=== PATIENT | female | born 2000 | race Caucasian/White ===

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

== ENCOUNTER → 2018-07-17 | Outpatient (CLI) | payer OTHER | LOC: M WUC 12:25 | DX: M79.672 Pain in left foot (principal) | CPT/HCPCS: 73630 ==

== ENCOUNTER → 2020-02-13 | Outpatient (REF) | payer OTHER ==
[~2020-02-13] MED LIST: IBUP80TA PO; ROBA500T PO
== END ==
LOC: M WUC 14:29
PROVIDERS: ATTEND Nurse Practitioner Family
DX: J02.9 Acute pharyngitis, unspecified (principal)

== ENCOUNTER → 2020-03-10 | Outpatient (REF) | payer OTHER | LOC: M WUC 08:57 | PROVIDERS: ATTEND Physician Assistant | DX: J02.9 Acute pharyngitis, unspecified (principal) ==

== ENCOUNTER → 2020-06-03 | Outpatient (REF) | payer OTHER ==
[2020-06-03 13:03] LABS: FREE T4 1.04 NG/DL (0.76-1.46); THYROID STIMULATING HORMONE 3.3 uIU/ML (0.358-3.740)
== END ==
LOC: M SFHCADAM 10:47
PROVIDERS: ATTEND Physician Assistant Medical
DX: F33.1 Major depressive disorder, recurrent, moderate (principal); F41.9 Anxiety disorder, unspecified; E66.01 Morbid (severe) obesity due to excess calories

== ENCOUNTER → 2021-04-26 | Outpatient (REF) | payer OTHER | LOC: M LAB REF 21:12 | PROVIDERS: ATTEND Physician Assistant Medical | DX: R50.9 Fever, unspecified (principal) ==

== ENCOUNTER → 2021-05-13 | Outpatient (REF) | payer OTHER | LOC: M LAB REF 16:35 | PROVIDERS: ATTEND Physician Assistant | DX: R07.0 Pain in throat (principal) ==

== ENCOUNTER 2021-05-31 14:32 | Emergency (ER) | payer OTHER ==
[~2021-05-31] VITALS: Ht 160 cm; Wt 108.8 kg
--- OUTSIDE RECORDS SUMMARY | 2021-05-31 14:38 | CCD ---
Author Author [facility] Organization [facility] Address Unknown Phone Unavailable Care Team Providers Care Human Resources Intern Name Role Phone HiraMelissa Unavailable PROBLEMS Type Condition ICD9-CM Code [id number] Code Onset Dates Condition S tatus W/U Status Risk SNOMED Code Notes Problem Anxiety F41.9 Active confirmed 94313383 Problem Generalized anxiety disorder F41.1 Active confirme d 37195391 Problem Moderate episode of recurrent major depressive disorder F33.1 Active confirmed 387118243 Problem Morbid obesity due to excess calories E66.01 Ac tive confirmed 203084940 ALLERGIES No Known Allergies ENCOUNTERS from 1998 to 2021-05-27 Encounter Location Date Provider Diagnosis [address] [place], [place] [address] May, Melissa Iniguez Generalized anxiety disorder F41.1 IMMUNIZATIONS No Information SOCIAL HISTORY Tobacco Use: Social History Observation Description Date Details (start date - stop date) Current Smoker Sex Assigned At : Social History Observation Description Sex Assigned At Unknown Education: Question Answer Notes Level of Education: Finished High School Audit Question Answer Notes Total Score: 4 Interpretation: Alcohol Education Language: Question Answer Notes Languages spoken: Sierra Leonean Sexual Hx: Question Answer Notes Had sex in the last 12 months (vaginal, oral, or anal)? Yes LMP: 04/17/2020 Have you ever had an STD? No Prevention Strategies discussed: Condoms with Both Men and Women Use protection? Yes How often? Most of the time Drug and Alcohol Question Answer Notes Total Score: 0 Interpretation: No problems reported Alcohol Screening: Question Answer Notes Did you have a drink containing alcohol in the past year? Ye s Points 5 Interpretation Positive How often did you have six or more drinks on one occas ion in the past year? Less than monthly (1 point) How many drinks did you have on a typica l day when you were drinking in the past year? 3 or 4 (1 point) How often did you have a drink containing alcohol in t he past year? Two to three times per week (3 points) Tobacco Use: Question Answer Notes Are you a: current smoker Vape, equivalent to 1/2 ppd Are you interested in quitting? Thinking about quitting REASON FOR REFERRAL No Information VITAL SIGNS No information MEDICATIONS Medication SIG (Take, Route, Frequency, Duration) Notes Start Da te End Date Status Previfem 0.25-35 MG-MCG 1 tablet Orally Once a day for 28 day(s) Active PROCEDURES No Information RESULTS No Results REASON FOR VISIT Zoom FU MEDICAL (GENERAL) HISTORY Type Description Date Medical History depression/anixety/insomnia Medical History morbid obesity Surgical History endoscopy / colonscopy - [facility] about 7 yo Surgical History B eye surgery 10/2014 Goals Section No Information Health Concerns No Information MEDICAL EQUIPMENT No Information MENTAL STATUS No Information FUNCTIONAL STATUS No Information ASSESSMENTS Encounter Date Diagnosis Assessment Notes Treatment Notes Treatm ent Clinical Notes May, Generalized anxiety disorder (ICD-10 - F41.1) Jacobo was seen for a follow up session. SHe reports symptoms have remained the same. Scheduled for follow up on 06/24/2021 PLAN OF TREATMENT Treatment Notes Assessment Notes Clinical Notes Generalized anxiety disorder Jacobo was seen for a follow up session. SHe reports symptoms have remained the same. Scheduled for follow up on 06/24/2021 Next Appt Details Provider Name:Brittany Esquivel, 2021-06-02 11:00:00 AM, [id number], , [place], [address], Provider Name:Melissa Iniguez, 2021-06-16 10:00:00 AM, [address], , [place], [address] Provider Name:Brittany Esquivel, 2021-07-19 07:15:00 AM, [address], , [place], [address], Insurance Providers Payer Name Payer Address Payer Phone Insured Name Patient Relati onship to Insured Coverage Start Date Coverage End Date [facility] [address] [address] [facility] [phone] Zander Morales
--- OUTSIDE RECORDS SUMMARY | 2021-05-31 14:38 | CCD ---
Author Author [facility] Organization [facility] [employer] [facility] Address Unknown Phone Unavailable Care Team Providers Care Communication Signals Intelligence Name Role Phone IniguezMelissa Unavailable PROBLEMS Type Condition ICD9-CM Code [id number] Code Onset Dates Condition S tatus W/U Status Risk SNOMED Code Notes Problem Anxiety F41.9 Active confirmed 48687286 Problem Generalized anxiety disorder F41.1 Active confirme d 72134254 Problem Moderate episode of recurrent major depressive disorder F33.1 Active confirmed 423029121 Problem Morbid obesity due to excess calories E66.01 Ac tive confirmed 968597809 ALLERGIES No Known Allergies ENCOUNTERS from 1998 to 2021-05-06 Encounter Location Date Provider Diagnosis [address] [place], [place] [address] 30 Apr, 2021 Melissa Iniguez Generalized anxiety disorder F41.1 IMMUNIZATIONS [...] Education Language: Question Answer Notes Languages spoken: Qatari Sexual Hx: Question Answer Notes Had sex [...] Information RESULTS No Results REASON FOR VISIT follow up MEDICAL (GENERAL) HISTORY Type Description Date Medical History depression/anixety/insomnia Medical History morbid obesity Surgical History endoscopy / colonscopy - [facility] about 7 yo Surgical History B eye surgery 10/2014 Goals Section No Information Health Concerns No Information MEDICAL EQUIPMENT No Information MENTAL STATUS No Information FUNCTIONAL STATUS No Information ASSESSMENTS Encounter Date Diagnosis Assessment Notes Treatment Notes Treatm ent Clinical Notes Apr, Generalized anxiety disorder (ICD-10 - F41.1) Jacobo was seen for a follow up session. He reports symptoms have remained the same. Scheduled for follow up on 05/27/21 at 8am. PLAN OF TREATMENT Treatment Notes Assessment Notes Clinical Notes Generalized anxiety disorder Jacobo was seen for a follow up session. He reports symptoms have remained the same. Scheduled for follow up on 05/27/21 at 8am. Next Appt Details Provider Name:Melissa Iniguez, 2021-05-27 08:00:00 AM, [address], , [place], [address] Insurance Providers Payer Name Payer Address Payer Phone Insured Name Patient Relati onship to Insured Coverage Start Date Coverage End Date [facility] [address] [address] [facility] [phone] Zander Abraham
--- OUTSIDE RECORDS SUMMARY | 2021-05-31 14:38 | CCD ---
Author Author [facility] Organization [facility] Address Unknown Phone Unavailable Care Team Providers Care Grey Goods Tester Name Role Phone RyanHaleyOsiris Unavailable PROBLEMS Type Condition ICD9-CM Code [id number] Code Onset Dates Condition S tatus W/U Status Risk SNOMED Code Notes Problem Anxiety F41.9 Active confirmed 18502617 Problem Generalized anxiety disorder F41.1 Active confirme d 15449353 Problem Moderate episode of recurrent major depressive disorder F33.1 Active confirmed 064341830 Problem Morbid obesity due to excess calories E66.01 Ac tive confirmed 979481718 ALLERGIES No Known Allergies ENCOUNTERS from 1998 to 2021-04-14 Encounter Location Date Provider Diagnosis [address] [place], [place] [address] 08 Apr, 2021 Osiris Davis Generalized anxiety disorder F41.1 IMMUNIZATIONS No Information SOCIAL HISTORY Tobacco Use: Social History Observation Description Date Details (start date - stop date) Current Smoker Sex Assigned At : Social History Observation Description Sex Assigned At Unknown Education: Question Answer Notes Level of Education: Finished High School Audit Question Answer Notes Total Score: 4 Interpretation: Alcohol Education Language: Question Answer Notes Languages spoken: Slovenian Sexual Hx: Question Answer Notes Had sex [...] No Results REASON FOR VISIT follow up Melissa taylor MEDICAL (GENERAL) HISTORY Type Description Date Medical [...] He reports symptoms have remained the same. Will follow up with Melissa Iniguez LMSW. PLAN OF TREATMENT Treatment Notes Assessment Notes Clinical Notes Generalized anxiety disorder Jacobo was seen for a follow up session. He reports symptoms have remained the same. Will follow up with Melissa Iniguez LMSW. Next Appt Details Provider Name:Melissa Iniguez, 2021-05-05 08:00:00 AM, [address], , [place], [address] Insurance Providers Payer Name Payer Address Payer Phone Insured Name Patient Relati onship to Insured Coverage Start Date Coverage End Date [facility] [address] [facility] [phone] Zander Morales
--- OUTSIDE RECORDS SUMMARY | 2021-05-31 14:39 | CCD ---
Author Author [facility] Organization [facility] Address Unknown Phone Unavailable Care Team Providers Care Drainman Name Role Phone RyanHaleyOsiris Unavailable PROBLEMS Type Condition ICD9-CM Code [id number] Code Onset Dates Condition S tatus W/U Status Risk SNOMED Code Notes Problem Anxiety F41.9 Active confirmed 81412657 Problem Generalized anxiety disorder F41.1 Active confirme d 26939162 Problem Moderate episode of recurrent major depressive disorder F33.1 Active confirmed 706313304 Problem Morbid obesity due to excess calories E66.01 Ac tive confirmed 621977422 ALLERGIES No Known Allergies ENCOUNTERS from 1998 to 2021-03-25 Encounter Location Date Provider Diagnosis [address] [place], [place] [address] Mar, Osiris Davis Generalized anxiety disorder F41.1 IMMUNIZATIONS [...] Education Language: Question Answer Notes Languages spoken: Irish Sexual Hx: Question Answer Notes Had sex [...] RESULTS No Results REASON FOR VISIT follow up/c[facility]et MEDICAL (GENERAL) HISTORY Type Description Date Medical History depression/anixety/insomnia Medical History morbid obesity Surgical History endoscopy / colonscopy - [facility] about 7 yo Surgical History B eye surgery 10/2014 Goals Section No Information Health Concerns No Information MEDICAL EQUIPMENT No Information MENTAL STATUS No Information FUNCTIONAL STATUS No Information ASSESSMENTS Encounter Date Diagnosis Assessment Notes Treatment Notes Treatm ent Clinical Notes Mar, Generalized anxiety disorder (ICD-10 - F41.1) Jacobo was seen for a follow up session, via zoom. Reports symptoms have remained the same. Scheduled for a return session 04/13/2021. PLAN OF TREATMENT Treatment Notes Assessment Notes Clinical Notes Generalized anxiety disorder Jacobo was seen for a follow up session, via zoom. Reports symptoms have remained the same. Scheduled for a return session 04/13/2021. Next Appt Details Provider Name:Osiris Ryan, 2021-04 11:00:00 AM, [address], , [place], [address] Insurance Providers Payer Name Payer Address Payer Phone Insured Name Patient Relati onship to Insured Coverage Start Date Coverage End Date [facility] [address] [address] [facility] [phone] Zander Morales
--- OUTSIDE RECORDS SUMMARY | 2021-05-31 14:39 | CCD ---
Author Author [facility] Organization [facility] Address Unknown Phone Unavailable Care Team Providers Care Sanitary [place]kin Machine Tender Name Role Phone Ryan Osiris Unavailable PROBLEMS Type Condition ICD9-CM Code [id number] Code Onset Dates Condition S tatus W/U Status Risk SNOMED Code Notes Problem Anxiety F41.9 Active confirmed 85109444 Problem Generalized anxiety disorder F41.1 Active confirme d 86854699 Problem Moderate episode of recurrent major depressive disorder F33.1 Active confirmed 582411467 Problem Morbid obesity due to excess calories E66.01 Ac tive confirmed 026089031 ALLERGIES No Known Allergies ENCOUNTERS from 1998 to 2021-03-14 Encounter Location Date Provider Diagnosis [address] [place] [address] Mar, Osiris Davis IMMUNIZATIONS No Information SOCIAL HISTORY Tobacco Use: Social History Observation Description Date Details (start date - stop date) Current Smoker Sex Assigned At : Social History Observation Description Sex Assigned At Unknown Education: Question Answer Notes Level of Education: Finished High School Audit Question Answer Notes Total Score: 4 Interpretation: Alcohol Education Language: Question Answer Notes Languages spoken: Ivorian Sexual Hx: Question Answer Notes Had sex [...] Information RESULTS No Results REASON FOR VISIT Update Demographics - Personal Info MEDICAL (GENERAL) HISTORY Type Description Date Medical History depression/anixety/insomnia Medical History morbid obesity Surgical History endoscopy / colonscopy - [facility] about 7 yo Surgical History B eye surgery 10/2014 Goals Section No Information Health Concerns No Information MEDICAL EQUIPMENT No Information MENTAL STATUS No Information FUNCTIONAL STATUS No Information ASSESSMENTS No Information PLAN OF TREATMENT Next Appt Details Provider Name:Osiris Ryan, 2021-03 09:00:00 AM, [address], , [place], [address] Insurance Providers Payer Name Payer Address Payer Phone Insured Name Patient Relati onship to Insured Coverage Start Date Coverage End Date [facility] [address] [address] [facility] [phone] Zander Abraham
--- OUTSIDE RECORDS SUMMARY | 2021-05-31 14:39 | CCD ---
Author Author [facility] [employer] [employer] [facility] Organization [facility] [employer] [facility] Address Unknown Phone Unavailable Care Team Providers Care Reserve Operator Name Role Phone RyanHaleyOsiris Unavailable PROBLEMS Type Condition ICD9-CM Code [id number] Code Onset Dates Condition S tatus W/U Status Risk SNOMED Code Notes Problem Anxiety F41.9 Active confirmed 55081134 Problem Generalized anxiety disorder F41.1 Active confirme d 32461272 Problem Moderate episode of recurrent major depressive disorder F33.1 Active confirmed 431821222 Problem Morbid obesity due to excess calories E66.01 Ac tive confirmed 693499694 ALLERGIES No Known Allergies ENCOUNTERS from 1998 to 2021-03-09 Encounter Location Date Provider Diagnosis [facility] [address] [place] [address] [address] [place], [place] [address] Mar, Osiris Davis Generalized anxiety disorder F41.1 [...] Education Language: Question Answer Notes Languages spoken: Syriac Sexual Hx: Question Answer Notes Had sex [...] the same. Scheduled for a return session 03/24/2021 PLAN OF TREATMENT Treatment Notes Assessment Notes Clinical Notes Generalized anxiety disorder Jacobo was seen for a follow up session, via zoom. Reports symptoms have remained the same. Scheduled for a return session 03/24/2021 Next Appt Details Provider Name:Osiris Davis, 2021-03 09:00:00 AM, [address], , [place], [address] Insurance Providers Payer Name Payer Address Payer Phone Insured Name Patient Relati onship to Insured Coverage Start Date Coverage End Date [facility] [address] [address] [facility] [phone] Zander Morales
--- OUTSIDE RECORDS SUMMARY | 2021-05-31 14:39 | CCD ---
Author Author [facility] Organization [facility] Address Unknown Phone Unavailable Care Team Providers Care Manager It Training Name Role Phone Noemi KANG MD Unavailable Unavailable JORGE LUIS, Noemi REES MD Unavailable Unavailable KANG, Noemi REES MD Unavailable Unavailable KANG, L NEGRITA LEVI Unavailable Unavailable KANG, Noemi REES MD Unavailable Unavailable KANG, L NEGRITA LEVI Unavailable Unavailable KANG, Noemi REES MD Unavailable Unavailable KANGNoemi MD Unavailable Unavailable KANG, L NEGRITA LEVI Unavailable Unavailable KANG, Noemi REES MD Unavailable Unavailable KANG, L NEGRIAT LEVI Unavailable Unavailable KANG, L NEGRITA LEVI Unavailable Unavailable KANG L NEGRITA LEVI Unavailable Unavailable KANG, L NEGRITA LEVI Unavailable Unavailable KANG, L NEGRITA LEVI Unavailable Unavailable KANG, L NEGRITA LEVI Unavailable Unavailable KANG, L NEGRITA LEVI Unavailable Unavailable KANG, L NEGRITA LEVI Unavailable Unavailable KANG, L NEGRITA LEVI Unavailable Unavailable KANG, L NEGRITA LEVI Unavailable Unavailable KANG, L NEGRITA LEVI Unavailable Unavailable KANG, L NEGRITA MD Unavailable Unavailable KANG, L NEGRITA MD Unavailable Unavailable KANG, L NEGRITA MD Unavailable Unavailable KANG, L NEGRITA MD Unavailable Unavailable KANG, L NEGRITA MD Unavailable Unavailable KANG, L NEGRITA MD Unavailable Unavailable KANG, L NEGRITA MD Unavailable Unavailable KANG, L NEGRITA MD Unavailable Unavailable KANG, L NEGRITA MD Unavailable Unavailable KANG, L NEGRITA MD Unavailable Unavailable KANG, L NEGRITA MD Unavailable Unavailable KANG, L NEGRITA MD Unavailable Unavailable KANG, L NEGRITA MD Unavailable Unavailable KANG, L NEGRITA MD Unavailable Unavailable KANG, L NEGRITA MD Unavailable Unavailable KANG, L NEGRITA MD Unavailable Unavailable KANG, L NEGRITA MD Unavailable Unavailable KANG, L NEGRITA MD Unavailable Unavailable KANG, L NEGRITA MD Unavailable Unavailable KANG, L NEGRITA MD Unavailable Unavailable KANG, L NEGRITA MD Unavailable Unavailable KANG, L NEGRITA MD Unavailable Unavailable KANG, L NEGRITA MD Unavailable Unavailable KANG, L NEGRITA MD Unavailable Unavailable Re-disclosure Warning The records that you are about to access may contain information from federally-assisted alcohol or drug abuse programs. If such information is present, then the following federally mandated warning applies: This information has been disclosed to you from records protected by federal confidentiality rules (42 CFR part 2). The federal rules prohibit you from making any further disclosure of this information unless further disclosure is expressly permitted by the written consent of the person to whom it pertains or as otherwise permitted by 42 CFR part 2. A general authorization for the release of medical or other information is NOT sufficient for this purpose. The Federal rules restrict any use of the information to criminally investigate or prosecute any alcohol or drug abuse patient.The records that you are about to access may contain highly sensitive health information, the redisclosure of which is protected by Article 27-F of the [facility] Public Health law. If you continue you may have access to information: Regarding HIV / AIDS; Provided by facilities licensed or operated by the [facility] Office of Mental Health; or Provided by the [facility] Office for People With Developmental Disabilities. If such information is present, then the following [facility] mandated warning applies: This information has been disclosed to you from confidential records which are protected by state law. State law prohibits you from making any further disclosure of this information without the specific written consent of the person to whom it pertains, or as otherwise permitted by law. Any unauthorized further disclosure in violation of state law may result in a fine or long term sentence or both. A general authorization for the release of medical or other information is NOT sufficient authorization for further disc losure. Family History Family Member Name Family Member Gender Family Member Status Date o f Status Description Data Source(s) Unknown Unknown Problem [facility]ENT ([facility], [facility]) Unknown Unknown Problem [place] [place]ters Encounter Providers Location Date Indications Data Source(s ) (TV_Virtual) [facility] [address] [place] [phone] 05/27/2021 12:00:00 AM EDT eCW1 ([facility]) (TV_Virtual) [facility] Visit [address] [place] [phone] 05/05/2021 12:00:00 AM EDT eCW1 ([facility]) (TV_Virtual) [facility] [address] [place] [phone] 04/13/2021 12:00:00 AM EDT eCW1 ([facility]) (TV_Virtual) [facility] [address] [place] [phone] 03/24/2021 12:00:00 AM EDT eCW1 ([facility]) Unknown [address] [place] [address], [place] [address] 03/09/2021 12:00:00 AM EDT eCW1 ([facility]) (TV_Virtual) [facility] Visit [address] [place] [phone] 03/09/2021 12:00:00 AM EDT eCW1 ([facility]) (TV_Virtual) [facility] Visit [address] [place] [phone] 02/23/2021 12:00:00 AM EDT eCW1 ([facility]) (TV_Virtual) [facility] [address] [place] [phone] 02/02/2021 12:00:00 AM EDT eCW1 ([facility]) (TV_Virtual) [facility] [address] [place] [phone] 01/28/2021 12:00:00 AM EDT eCW1 ([facility]) (TV_Virtual) [facility] [address] [place] [phone] 01/10/2021 12:00:00 AM EDT eCW1 ([facility]) (TV_Virtual) [facility] Visit [address] [place] [phone] 12/16/2020 12:00:00 AM EDT eCW1 ([facility]) (TV_Virtual) [facility] [address] [place] [phone] 11/22/2020 12:00:00 AM EDT eCW1 ([facility]) (TV_Virtual) [facility] [address] [place] [phone] 11/01/2020 12:00:00 AM EDT eCW1 ([facility]) (TV_Virtual) [facility] [address] [place] [phone] 10/13/2020 12:00:00 AM EST eCW1 ([facility]) (TV_Virtual) [facility] [address] [place] [phone] 09/22/2020 12:00:00 AM EST eCW1 ([facility]) (TV_Virtual) [facility] Visit [address] [place] [phone] 09/02/2020 12:00:00 AM EST eCW1 ([facility]) Outpatient [address] [place] [phone] 08/30/2020 12:00:00 AM EST eCW1 ([facility]) (TV_Virtual) [facility] Visit [address] [place] [phone] 08/17/2020 12:00:00 AM EST eCW1 ([facility]) [place] [address] [facility] [address] 08/03/2020 12:00:00 AM EST eCW1 ([facility]) (TV_Virtual) [facility] Visit [address] [place] [address] 07/23/2020 12:00:00 AM EST eCW1 ([facility]) [place] [address] [facility] [address] 07/21/2020 12:00:00 AM EST eCW1 ([facility]) [place] [address] [facility] [address] 07/12/2020 12:00:00 AM EST eCW1 ([facility]) (TV_Virtual) [facility] Visit [address] [place] [address] 07/06/2020 12:00:00 AM EST eCW1 ([facility]) [place] [address] [facility] [address] 06/21/2020 12:00:00 AM EST eCW1 ([facility]) [place] [address] [facility] [address] 06/17/2020 12:00:00 AM EST eCW1 ([facility]) [place] [address] [facility] [address] 06/03/2020 12:00:00 AM EDT eCW1 ([facility]) Outpatient Attender: NEGRITA [facility] anesthetist 02/2020 10:15:00 AM EDT MEDLISA ([facility] [employer]) Immunizations Vaccine Date Status Description Data Source(s) COVID-19 VACC,MRNA(MODERNA)/PF 12/20/2020 12:00:00 AM EDT completed [facility] COVID-19 VACCINE Moderna 12/20/2020 12:00:00 AM EDT completed [facility] Vaccine Series Complete: YESThis Data wa s Submitted to [facility] Via [facility]. COVID-19 VACCINE Moderna 11/25/2020 12:00:00 AM EDT completed [facility] Vaccine Series Complete: NOThis Data was Submitted to [facility] Via [employer]. COVID-19 VACC,MRNA(MODERNA)/PF 11/25/2020 12:00:00 AM EDT completed [facility] Medications Medication Brand Name Start Date Product Form Dose Route Admi nistrative Instructions Pharmacy Instructions Status Indications Reaction Description Data Source(s) Escitalopram 10 MG Oral Tablet Escitalopram Oxalate 10 MG Escitalopram Oxalate 10 MG 08/03/2020 12:00:00 AM EST 1.0 {tablet} activ e Escitalopram Oxalate 10 MG eCW1 ([facility]) Escitalopram 10 MG Oral Tablet Escitalopram Oxalate 10 MG Escitalopram Oxalate 10 MG 08/03/2020 12:00:00 AM EST 1.0 {tablet} activ e Escitalopram Oxalate 10 MG eCW1 ([facility]) Sertraline 100 MG Oral Tablet Sertraline HCl 100 MG Sertrali ne HCl 100 MG 06/03/2020 12:00:00 AM EDT 1.0 {tablet} active Sertraline HCl 100 MG eCW1 ([facility]) Sertraline 100 MG Oral Tablet Sertraline HCl 100 MG Sertrali ne HCl 100 MG 06/03/2020 12:00:00 AM EDT 1.0 {tablet} active Sertraline HCl 100 MG eCW1 ([facility]) Sertraline 50 MG Oral Tablet Sertraline HCl 50 MG Sertraline HCl 50 MG 06/03/2020 12:00:00 AM EDT 1.0 {tablet} active Sertraline HCl 50 MG eCW1 ([facility]) Sertraline 50 MG Oral Tablet Sertraline HCl 50 MG Sertraline HCl 50 MG 06/03/2020 12:00:00 AM EDT 1.0 {tablet} active Sertraline HCl 50 MG eCW1 ([facility]) Sertraline 50 MG Oral Tablet Sertraline HCl 50 MG Sertraline HCl 50 MG 06/03/2020 12:00:00 AM EDT 1.0 {tablet} active Sertraline HCl 50 MG eCW1 ([facility]) Sertraline 50 MG Oral Tablet Sertraline HCl 50 MG Sertraline HCl 50 MG 06/03/2020 12:00:00 AM EDT 1.0 {tablet} active Sertraline HCl 50 MG eCW1 ([facility]) Sertraline 100 MG Oral Tablet Sertraline HCl 100 MG Sertrali ne HCl 100 MG 06/03/2020 12:00:00 AM EDT 1.0 {tablet} active Sertraline HCl 100 MG eCW1 ([facility]) 0.25-35 mg-mcg 05/12/2020 12:00:00 AM EDT tablet 28 TAKE ONE TABLET BY MOUTH EVERY DAY TAKE ONE TABLET BY MOUTH EVERY DAY SOLD: 05/14/2020 [facility] 0.25-35 mg-mcg 05/12/2020 12:00:00 AM EDT tablet 28 TAKE ONE TABLET BY MOUTH EVERY DAY TAKE ONE TABLET BY MOUTH EVERY DAY SOLD: 07/10/2020 [facility] 0.25-35 mg-mcg 05/12/2020 12:00:00 AM EDT tablet 28 TAKE ONE TABLET BY MOUTH EVERY DAY TAKE ONE TABLET BY MOUTH EVERY DAY SOLD: 01/06/2021 [facility] 0.25-35 mg-mcg 05/12/2020 12:00:00 AM EDT tablet 28 TAKE ONE TABLET BY MOUTH EVERY DAY TAKE ONE TABLET BY MOUTH EVERY DAY SOLD: 02/02/2021 [facility] 0.25-35 mg-mcg 05/12/2020 12:00:00 AM EDT tablet 28 TAKE ONE TABLET BY MOUTH EVERY DAY TAKE ONE TABLET BY MOUTH EVERY DAY SOLD: 11/23/2020 [facility] 0.25-35 mg-mcg 05/12/2020 12:00:00 AM EDT tablet 28 TAKE ONE TABLET BY MOUTH EVERY DAY TAKE ONE TABLET BY MOUTH EVERY DAY SOLD: 09/23/2020 [facility] Sprintec 28 Sprintec 28 05/12/2020 12:00:00 AM EDT ORAL active MEDENT ([facility] [employer]) 0.25-35 mg-mcg 05/12/2020 12:00:00 AM EDT tablet 28 TAKE ONE TABLET BY MOUTH EVERY DAY TAKE ONE TABLET BY MOUTH EVERY DAY SOLD: 10/28/2020 [facility] Insurance Providers Payer name Policy type / Coverage type Policy ID Covered green party ID Covered green party's relationship to weinstein Policy Weinstein [facility] [id number] FA2 [id number] POMCO [id number] FA2 [id number] [facility] [id number] FA2 [id number] POMCO U [id number] Child [id number] Pom[employer] Ppo Commercial [id number] Family Dependent 33 3 POMCO U [id number] Child [id number] POMCO O [id number] FR [id number] Self Pay O [id number] O [id number] POM[employer] P [id number] O [id number] Sliding Fee Scale S [id number] O [id number] [employer] PPO O [id number] C [id number] Umr/c/[facility] [facility] Maintenance Organization (O) [id number] Family Dependent [id number] [employer]mr[employer] (O) [id number] Family Dependent [id number] PROGRESSIVE CO NO FAULT [id number] MO2 [id number] PROGRESSIVE CO NO FAULT [id number] MO2 [id number] [employer] Ppo Commercial [id number] Family Dependent Jesusita Morales [id number] [facility] [id number] FA2 [id number] Problems, Conditions, and Diagnoses Code Display Name Description Problem Type Effective Dates Data Source(s) F41.1 [id number] Generalized anxiety disorder Problem 021 12:00:00 AM EST eCW1 ([facility]) E66.01 [id number] Morbid obesity due to excess calories Pro blem 06/03/2020 12:00:00 AM EDT eCW1 ([facility]) F33.1 [id number] 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 Cervical, Endocervical, ThinPrep Pap (Film Critic) CYTOLOGY HX-------- Date of Last Menstrual Period: 02/15/20 Other Information: Routine Exam FINAL DIAGNOSIS---- INTERPRETATION: Negative for Intraepithelial Lesion or Malignancy. SPECIMEN ADEQUACY:Satisfactory for evaluation. Endocervical/transformation zone component present. TP Reflex HPV ASCUS Laboratory test result MEDENT ([facility] [employer]) Procedure Social History Code Duration Value Status Description Data Source(s ) Smoking 08/30/2020 12:00:00 AM EST Current Smoker completed Curre nt Smoker eCW1 ([facility]) Smoking 08/30/2020 12:00:00 AM EST Current Smoker completed Curre nt Smoker eCW1 ([facility]) Smoking 08/30/2020 12:00:00 AM EST Current Smoker completed Curre nt Smoker eCW1 ([facility]) Smoking 08/30/2020 12:00:00 AM EST Current Smoker completed Curre nt Smoker eCW1 ([facility]) Smoking 08/30/2020 12:00:00 AM EST Current Smoker completed Curre nt Smoker eCW1 ([facility]) Smoking 08/30/2020 12:00:00 AM EST Current Smoker completed Curre nt Smoker eCW1 ([facility]) Smoking 08/30/2020 12:00:00 AM EST Current Smoker completed Curre nt Smoker eCW1 ([facility]) Smoking 08/30/2020 12:00:00 AM EST Current Smoker completed Curre nt Smoker eCW1 ([facility]) Smoking 08/30/2020 12:00:00 AM EST Current Smoker completed Curre nt Smoker eCW1 ([facility]) Smoking 08/30/2020 12:00:00 AM EST Current Smoker completed Curre nt Smoker eCW1 ([facility]) Smoking 08/30/2020 12:00:00 AM EST Current Smoker completed Curre nt Smoker eCW1 ([facility]) Smoking 08/30/2020 12:00:00 AM EST Current Smoker completed Curre nt Smoker eCW1 ([facility]) Smoking 08/30/2020 12:00:00 AM EST Current Smoker completed Curre nt Smoker eCW1 ([facility]) Smoking 08/30/2020 12:00:00 AM EST Current Smoker completed Curre nt Smoker eCW1 ([facility]) Smoking 08/30/2020 12:00:00 AM EST Current Smoker completed Curre nt Smoker eCW1 ([facility]) Smoking 08/30/2020 12:00:00 AM EST Current Smoker completed Curre nt Smoker eCW1 ([facility]) Smoking 08/30/2020 12:00:00 AM EST Current Smoker completed Curre nt Smoker eCW1 ([facility]) Smoking 08/03/2020 12:00:00 AM EST Current Smoker completed Curre nt Smoker eCW1 ([facility]) Smoking 08/03/2020 12:00:00 AM EST Current Smoker completed Curre nt Smoker eCW1 ([facility]) Smoking 07/12/2020 12:00:00 AM EST Current Smoker completed Curre nt Smoker eCW1 ([facility]) Smoking 07/12/2020 12:00:00 AM EST Current Smoker completed Curre nt Smoker eCW1 ([facility]) Smoking 07/12/2020 12:00:00 AM EST Current Smoker completed Curre nt Smoker eCW1 ([facility]) Smoking 06/21/2020 12:00:00 AM EST Current Smoker completed Curre nt Smoker eCW1 ([facility]) Smoking 06/21/2020 12:00:00 AM EST Current Smoker completed Curre nt Smoker eCW1 ([facility]) Smoking 06/03/2020 12:00:00 AM EDT Current Smoker completed Curre nt Smoker eCW1 ([facility]) Smoking 06/03/2020 12:00:00 AM EDT Current Smoker completed Curre nt Smoker eCW1 ([facility]) Vital Signs ID Date Data Source UNK Name Value Range Interpretation Code Description Data Source(s) Body height [in_i] eCW1 ([facility]) Body weight 222 [lb_av] 222 [lb_av] eCW1 ([facility]) Body mass index (BMI) [Ratio] 39.32 kg/m2 39.32 kg/m2 eCW1 ([facility]) Heart rate 122 /min 122 /min eCW1 ([facility]) Respiratory rate 18 /min 18 /min eCW1 ([facility]) Body temperature 98 [degF] 98 [degF] eCW1 ([facility]) Systolic blood pressure 112 mm[Hg] 112 mm[Hg] e CW1 ([facility]) Diastolic blood pressure 66 mm[Hg] 66 mm[Hg] eCW1 ([facility]) Body weight 227 [lb_av] 227 [lb_av] eCW1 ([facility]) Body height [in_i] eCW1 ([facility]) Body mass index (BMI) [Ratio] 40.21 kg/m2 40.21 kg/m2 eCW1 ([facility]) Heart rate 107 /min 107 /min eCW1 ([facility]) Respiratory rate 18 /min 18 /min eCW1 ([facility]) Body temperature 96.6 [degF] 96.6 [degF] eCW1 ( [facility]) Systolic blood pressure 120 mm[Hg] 120 mm[Hg] e CW1 ([facility]) Diastolic blood pressure 78 mm[Hg] 78 mm[Hg] eCW1 ([facility]) Body weight 228 [lb_av] 228 [lb_av] eCW1 ([facility]) Body height [in_i] eCW1 ([facility]) Respiratory rate 18 /min 18 /min eCW1 ([facility]) Body temperature 96.5 [degF] 96.5 [degF] eCW1 ( [facility]) Systolic blood pressure 128 mm[Hg] 128 mm[Hg] e CW1 ([facility]) Diastolic blood pressure 76 mm[Hg] 76 mm[Hg] eCW1 ([facility]) Heart rate 125 /min 125 /min eCW1 ([facility]) Body mass index (BMI) [Ratio] 40.38 kg/m2 40.38 kg/m2 eCW1 ([facility]) Body weight 233 [lb_av] 233 [lb_av] eCW1 ([facility]) Body height [in_i] eCW1 ([facility]) Body mass index (BMI) [Ratio] 41.27 kg/m2 41.27 kg/m2 eCW1 ([facility]) Heart rate 105 /min 105 /min eCW1 ([facility]) Respiratory rate 18 /min 18 /min eCW1 ([facility]) Body temperature 97.7 [degF] 97.7 [degF] eCW1 ( [facility]) Systolic blood pressure 122 mm[Hg] 122 mm[Hg] e CW1 ([facility]) Diastolic blood pressure 76 mm[Hg] 76 mm[Hg] eCW1 ([facility]) Body weight 232 [lb_av] 232 [lb_av] eCW1 ([facility]) Body height [in_i] eCW1 ([facility]) Body mass index (BMI) [Ratio] 41.09 kg/m2 41.09 kg/m2 W1 ([facility]) Heart rate 125 /min 125 /min eCW1 ([facility]) Respiratory rate 20 /min 20 /min eCW1 ([facility]) Body temperature 99.9 [degF] 99.9 [degF] eCW1 ( [facility]) Systolic blood pressure 110 mm[Hg] 110 mm[Hg] e CW1 ([facility]) Diastolic blood pressure 70 mm[Hg] 70 mm[Hg] eCW1 ([facility]) Body surface area Derived from formula 2.07 m2 2.07 m2 MEDENT ([facility] [employer]) Systolic blood pressure 122 mm[Hg] 122 mm[Hg] M EDENT ([facility] [employer]) Diastolic blood pressure 80 mm[Hg] 80 mm[Hg] MEDENT ([facility] [employer]) Body height 64 [in_i] 64 [in_i] MEDENT ([facility] [employer]) 5'4" Body weight 229.00 [lb_av] 229.00 [lb_av] MEDEN T ([facility] [employer]) Body mass index (BMI) [Ratio] 39.3 kg/m2 39.3 k g/m2 MEDENT ([facility] [employer]) Patient Treatment Plan of Care Planned Activity Planned Date Details Description Data Source (s) Escitalopram 10 MG Oral Tablet 08/03/2020 12:00:00 AM EST eCW1 ([facility]) Escitalopram 10 MG Oral Tablet 08/03/2020 12:00:00 AM EST eCW1 ([facility]) Sertraline 100 MG Oral Tablet 06/03/2020 12:00:00 AM EDT eCW1 ([facility]) Sertraline 100 MG Oral Tablet 06/03/2020 12:00:00 AM EDT eCW1 ([facility]) Sertraline 100 MG Oral Tablet 06/03/2020 12:00:00 AM EDT eCW1 ([facility]) Sertraline 50 MG Oral Tablet 06/03/2020 12:00:00 AM EDT eCW1 ([facility]) Sertraline 50 MG Oral Tablet 06/03/2020 12:00:00 AM EDT eCW1 ([facility])
[2021-05-31] MEDS ORDERED: ARIP1TAB4 (14:46)
[2021-05-31] MEDS ORDERED: TRAZ-252 (14:46)
[2021-05-31] MEDS ORDERED: ALBUTEROL 90 MCG/ACT 8GM HFA INHALER INH ONE (15:20)
--- NOTE | 2021-05-31 15:30 | REP ---
INDICATION: sob/cough. COMPARISON: None. TECHNIQUE: PA and lateral FINDINGS: The superior mediastinal structures are midline. The cardiac silhouette is unremarkable in size, shape, and position. The diaphragmatic surfaces of the lungs are regular, and the costophrenic angles are clear. The pulmonary danielle are clear. The imaged osseous structures are intact. IMPRESSION: There is no acute cardiopulmonary disease. <Electronically signed by Arnold Gonzalez > 05/31/21 [id number]
--- OUTSIDE RECORDS SUMMARY | 2021-05-31 15:42 | CCD ---
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 If you continue you may have access to information: Regarding HIV / AIDS; Provided by facilities licensed or operated by the [facility] Office of Mental Health; or Provided by the [facility] Office for People With Developmental Disabilities. If such information is present, then the following [facility] mandated warning applies: This information has been [...] law may result in a fine or long-term sentence or both. A general authorization for the release of medical or other information is NOT sufficient authorization for further disc losure. Family History Family Member Name Family Member Gender Family Member Status Date o f Status Description Data Source(s) Unknown Unknown Problem MEDENT ([facility]) Unknown Unknown Problem MEDENT ([facility]) Encounters Encounter Providers Location Date Indications Data Source(s ) (TV_Virtual) [facility] [address] [place] [phone] 05/27/2021 12:00:00 AM EDT eCW1 ([facility]) (TV_Virtual) [facility] Visit [address] [place] [phone] 05/05/2021 12:00:00 AM EDT eCW1 ([facility]) (TV_Virtual) [facility] [address] [place] [phone] 04/13/2021 12:00:00 AM EDT eCW1 ([facility]) (TV_Virtual) [facility] Visit [address] [place] [phone] 03/24/2021 12:00:00 AM EDT eCW1 ([facility]) Unknown [address] [place] [address], [place] [address] 03/09/2021 12:00:00 AM EDT eCW1 ([facility]) (TV_Virtual) [facility] Visit [address] [place] [phone] 03/09/2021 12:00:00 AM EDT eCW1 ([facility]) (TV_Virtual) [facility] [address] [place] [phone] 02/23/2021 12:00:00 AM EDT eCW1 ([facility]) (TV_Virtual) [facility] [address] [place] [phone] 02/02/2021 12:00:00 AM EDT eCW1 ([facility]) (TV_Virtual) [facility] [address] [place] [phone] 01/28/2021 12:00:00 AM EDT eCW1 ([facility]) (TV_Virtual) [facility] [address] [place] [phone] 01/10/2021 12:00:00 AM EDT eCW1 ([facility]) (TV_Virtual) [facility] [address] [place] [phone] 12/16/2020 12:00:00 AM EDT eCW1 ([facility]) (TV_Virtual) [facility] [address] [place] [phone] 11/22/2020 12:00:00 AM EDT eCW1 ([facility]) (TV_Virtual) [facility] [address] [place] [phone] 11/01/2020 12:00:00 AM EDT eCW1 ([facility]) (TV_Virtual) [facility] [address] [place] [phone] 10/13/2020 12:00:00 AM EST eCW1 ([facility]) (TV_Virtual) [facility] [address] [place] [phone] 09/22/2020 12:00:00 AM EST eCW1 ([facility]) (TV_Virtual) [facility] [address] [place] [phone] 09/02/2020 12:00:00 AM EST eCW1 ([facility]) Outpatient [address] [place] [phone] 08/30/2020 12:00:00 AM EST eCW1 ([facility]) (TV_Virtual) [facility] Visit [address] [place] [phone] 08/17/2020 12:00:00 AM EST eCW1 ([facility]) [place] [address] [facility] [address] 08/03/2020 12:00:00 AM EST eCW1 ([facility]) (TV_Virtual) [facility] Visit [address] [place] [address] 07/23/2020 12:00:00 AM EST eCW1 ([facility]) Unknown [address] [facility] [address] 07/21/2020 12:00:00 AM EST eCW1 ([facility]) Outpatient [address] [facility] [address] 07/12/2020 12:00:00 AM EST eCW1 ([facility]) (TV_Virtual) [facility] Visit [address] [place] [address] 07/06/2020 12:00:00 AM EST eCW1 ([facility]) [place] [address] [facility] [address] 06/21/2020 12:00:00 AM EST eCW1 ([facility]) Out[place] [address] [facility] [address] 06/17/2020 12:00:00 AM EST eCW1 ([facility]) Out[place] [address] [facility] [address] 06/03/2020 12:00:00 AM EDT eCW1 ([facility]) Outpatient 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 COVID-19 VACCINE Moderna 11/25/2020 12:00:00 AM EDT completed [facility] Vaccine Series Complete: NOThis Data was Submitted to [facility] Via [facility]. COVID-19 VACC,MRNA(MODERNA)/PF 11/25/2020 12:00:00 AM EDT completed [facility] Medications Medication Brand Name Start Date Product Form Dose Route Admi nistrative Instructions Pharmacy Instructions Status Indications Reaction Description Data Source(s) Escitalopram 10 MG Oral Tablet Escitalopram Oxalate 10 MG Escitalopram Oxalate 10 MG 08/03/2020 12:00:00 AM EST 1.0 {tablet} activ e Escitalopram Oxalate 10 MG [facility] Escitalopram 10 MG Oral Tablet Escitalopram Oxalate 10 MG Escitalopram Oxalate 10 MG 08/03/2020 12:00:00 AM EST 1.0 {tablet} activ e Escitalopram Oxalate 10 MG [facility]CW1 [facility]) Sertraline 100 MG Oral Tablet Sertraline HCl 100 MG Sertrali ne HCl 100 MG 06/03/2020 12:00:00 AM EDT 1.0 {tablet} active Sertraline HCl 100 MG [facility]CW1 [facility]) Sertraline 100 MG Oral Tablet Sertraline HCl 100 MG Sertrali ne HCl 100 MG 06/03/2020 12:00:00 AM EDT 1.0 {tablet} active Sertraline HCl 100 MG [facility]CW1 [facility]) Sertraline 50 MG Oral Tablet Sertraline HCl 50 MG Sertraline HCl 50 MG 06/03/2020 12:00:00 AM EDT 1.0 {tablet} active Sertraline HCl 50 MG [facility]CW1 [facility]) Sertraline 50 MG Oral Tablet Sertraline HCl 50 MG Sertraline HCl 50 MG 06/03/2020 12:00:00 AM EDT 1.0 {tablet} active Sertraline HCl 50 MG [facility]CW1 [facility]) Sertraline 50 MG Oral Tablet Sertraline HCl 50 MG Sertraline HCl 50 MG 06/03/2020 12:00:00 AM EDT 1.0 {tablet} active Sertraline HCl 50 MG [facility]CW1 [facility]) Sertraline 50 MG Oral Tablet Sertraline HCl 50 MG Sertraline HCl 50 MG 06/03/2020 12:00:00 AM EDT 1.0 {tablet} active Sertraline HCl 50 MG eCW1 [facility]) Sertraline 100 MG Oral Tablet Sertraline HCl 100 MG Sertrali ne HCl 100 MG 06/03/2020 12:00:00 AM EDT 1.0 {tablet} active Sertraline HCl 100 MG [facility]CW1 [facility]) 0.25-35 mg-mcg 05/12/2020 12:00:00 AM EDT tablet [...] AM EDT ORAL 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) 0.25-35 mg-mcg 05/12/2020 12:00:00 AM EDT tablet 28 TAKE ONE TABLET BY MOUTH EVERY DAY TAKE ONE TABLET BY MOUTH EVERY DAY SOLD: 10/28/2020 [facility] Insurance Providers Payer name Policy type / Coverage type Policy ID Covered libertarian ID Covered libertarian's relationship to weinstein Policy Weinstein [facility] Information [id number] FA2 [id number] [employer] [id number] FA2 [id number] [facility] [id number] FA2 [id number] P[employer] U [id number] Child [id number] [employer] Ppo Commercial [id number] Family Dependent 33 3 POMCO U [id number] Child [id number] [employer] O [id number] FR [id number] Self Pay O [id number] O [id number] [employer] P [id number] O [id number] Sliding Fee Scale S [id number] O [id number] [employer] PPO O [id number] C [id number] [facility] [facility] (O) [id number] Family Dependent [id number] [facility] [facility] (O) [id number] Family Dependent [id number] PROGRESSIVE [employer] NO FAULT [id number] MO2 [id number] PROGRESSIVE [employer] NO FAULT [id number] MO2 [id number] [employer] Ppo Commercial [id number] Family Dependent Jesusita Morales [id number] [facility] [id number] FA2 [id number] Problems, Conditions, and Diagnoses Code Display Name Description Problem Type Effective Dates Data Source(s) F41.1 [id number] Generalized anxiety disorder Problem 021 12:00:00 AM EST [facility] E66.01 [id number] Morbid obesity due to excess calories Pro blem 06/03/2020 12:00:00 AM EDT [facility]CW1 [facility]) F33.1 [id number] 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 a nd reported by [facility]. 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 Cervical, Endocervical, ThinPrep Pap (Core Dipper) CYTOLOGY HX-------- Date of Last Menstrual Period: 02/15/20 Other Information: Routine Exam FINAL DIAGNOSIS---- INTERPRETATION: Negative for Intraepithelial Lesion or Malignancy. SPECIMEN ADEQUACY:Satisfactory for evaluation. Endocervical/transformation zone component present. 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) Procedure Social History Code Duration Value Status Description Data Source(s ) Smoking 08/30/2020 12:00:00 AM EST Current Smoker completed Curre nt Smoker eCW1 ([facility]) Smoking 08/30/2020 12:00:00 AM EST Current Smoker completed Curre nt Smoker eCW1 ([facility]) Smoking 08/30/2020 12:00:00 AM EST Current Smoker completed Curre nt Smoker eCW1 ([facility]) Smoking 08/30/2020 12:00:00 AM EST Current Smoker completed Curre nt Smoker eCW1 ([facility]) Smoking 08/30/2020 12:00:00 AM EST Current Smoker completed Curre nt Smoker eCW1 ([facility]) Smoking 08/30/2020 12:00:00 AM EST Current Smoker completed Curre nt Smoker eCW1 ([facility]) Smoking 08/30/2020 12:00:00 AM EST Current Smoker completed Curre nt Smoker eCW1 ([facility]) Smoking 08/30/2020 12:00:00 AM EST Current Smoker completed Curre nt Smoker eCW1 ([facility]) Smoking 08/30/2020 12:00:00 AM EST Current Smoker completed Curre nt Smoker eCW1 ([facility]) Smoking 08/30/2020 12:00:00 AM EST Current Smoker completed Curre nt Smoker eCW1 ([facility]) Smoking 08/30/2020 12:00:00 AM EST Current Smoker completed Curre nt Smoker eCW1 ([facility]) Smoking 08/30/2020 12:00:00 AM EST Current Smoker completed Curre nt Smoker eCW1 ([facility]) Smoking 08/30/2020 12:00:00 AM EST Current Smoker completed Curre nt Smoker eCW1 ([facility]) Smoking 08/30/2020 12:00:00 AM EST Current Smoker completed Curre nt Smoker eCW1 ([facility]) Smoking 08/30/2020 12:00:00 AM EST Current Smoker completed Curre nt Smoker eCW1 ([facility]) Smoking 08/30/2020 12:00:00 AM EST Current Smoker completed Curre nt Smoker eCW1 ([facility]) Smoking 08/30/2020 12:00:00 AM EST Current Smoker completed Curre nt Smoker eCW1 ([facility]) Smoking 08/03/2020 12:00:00 AM EST Current Smoker completed Curre nt Smoker eCW1 ([facility]) Smoking 08/03/2020 12:00:00 AM EST Current Smoker completed Curre nt Smoker eCW1 ([facility]) Smoking 07/12/2020 12:00:00 AM EST Current Smoker completed Curre nt Smoker eCW1 ([facility]) Smoking 07/12/2020 12:00:00 AM EST Current Smoker completed Curre nt Smoker eCW1 ([facility]) Smoking 07/12/2020 12:00:00 AM EST Current Smoker completed Curre nt Smoker eCW1 ([facility]) Smoking 06/21/2020 12:00:00 AM EST Current Smoker completed Curre nt Smoker eCW1 ([facility]) Smoking 06/21/2020 12:00:00 AM EST Current Smoker completed Curre nt Smoker eCW1 ([facility]) Smoking 06/03/2020 12:00:00 AM EDT Current Smoker completed Curre nt Smoker eCW1 ([facility]) Smoking 06/03/2020 12:00:00 AM EDT Current Smoker completed Curre nt Smoker eCW1 ([facility]) Vital Signs ID Date Data Source UNK Name Value Range Interpretation Code Description Data Source(s) Body mass index (BMI) [Ratio] 39.32 kg/m2 39.32 kg/m2 eCW1 ([facility]) Body height [in_i] eCW1 ([facility]) Body weight 222 [lb_av] 222 [lb_av] eCW1 ([facility]) Body temperature 98 [degF] 98 [degF] eCW1 ([facility]) Systolic blood pressure 112 mm[Hg] 112 mm[Hg] e CW1 ([facility]) Diastolic blood pressure 66 mm[Hg] 66 mm[Hg] eCW1 ([facility]) Heart rate 122 /min 122 /min eCW1 ([facility]) Respiratory rate 18 /min 18 /min eCW1 ([facility]) Body weight 227 [lb_av] 227 [lb_av] eCW1 ([facility]) Body height [in_i] eCW1 ([facility]) Body mass index (BMI) [Ratio] 40.21 kg/m2 40.21 kg/m2 eCW1 ([facility]) Heart rate 107 /min 107 /min eCW1 ([facility]) Respiratory rate 18 /min 18 /min eCW1 ([facility]) Body temperature 96.6 [degF] 96.6 [degF] eCW1 ( [facility]) Systolic blood pressure 120 mm[Hg] 120 mm[Hg] e CW1 ([facility]) Diastolic blood pressure 78 mm[Hg] 78 mm[Hg] eCW1 ([facility]) Body weight 228 [lb_av] 228 [lb_av] eCW1 ([facility]) Body height [in_i] eCW1 ([facility]) Body mass index (BMI) [Ratio] 40.38 kg/m2 40.38 kg/m2 eCW1 ([facility]) Heart rate 125 /min 125 /min eCW1 ([facility]) Respiratory rate 18 /min 18 /min eCW1 ([facility]) Body temperature 96.5 [degF] 96.5 [degF] eCW1 ( [facility]) Systolic blood pressure 128 mm[Hg] 128 mm[Hg] e CW1 ([facility]) Diastolic blood pressure 76 mm[Hg] 76 mm[Hg] eCW1 ([facility]) Body weight 233 [lb_av] 233 [lb_av] eCW1 ([facility]) Body height [in_i] eCW1 ([facility]) Body mass index (BMI) [Ratio] 41.27 kg/m2 41.27 kg/m2 eCW1 ([facility]) Heart rate 105 /min 105 /min eCW1 ([facility]) Respiratory rate 18 /min 18 /min eCW1 ([facility]) Body temperature 97.7 [degF] 97.7 [degF] eCW1 ( [facility]) Systolic blood pressure 122 mm[Hg] 122 mm[Hg] e CW1 ([facility]) Diastolic blood pressure 76 mm[Hg] 76 mm[Hg] eCW1 ([facility]) Body weight 232 [lb_av] 232 [lb_av] eCW1 ([facility]) Body height [in_i] eCW1 ([facility]) Body mass index (BMI) [Ratio] 41.09 kg/m2 41.09 kg/m2 eCW1 ([facility]) Heart rate 125 /min 125 /min eCW1 ([facility]) Respiratory rate 20 /min 20 /min eCW1 ([facility]) Body temperature 99.9 [degF] 99.9 [degF] eCW1 ( [facility]) Systolic blood pressure 110 mm[Hg] 110 mm[Hg] e CW1 ([facility]) Diastolic blood pressure 70 mm[Hg] 70 mm[Hg] eCW1 ([facility]) Body surface area Derived from formula 2.07 m2 2.07 m2 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) Body mass index (BMI) [Ratio] 39.3 kg/m2 39.3 k g/m2 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) Systolic blood pressure 122 mm[Hg] 122 mm[Hg] M EDENT ([facility] [employer]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) Diastolic blood pressure 80 mm[Hg] 80 mm[Hg] 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) Body height 64 [in_i] 64 [in_i] 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) 5'4" Body weight 229.00 [lb_av] 229.00 [lb_av] MEDEN T ([facility] [employer]IN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) Patient Treatment Plan of Care Planned Activity Planned Date Details Description Data Source (s) Escitalopram 10 MG Oral Tablet 08/03/2020 12:00:00 AM EST eCW1 ([facility]) Escitalopram 10 MG Oral Tablet 08/03/2020 12:00:00 AM EST eCW1 ([facility]) Sertraline 100 MG Oral Tablet 06/03/2020 12:00:00 AM EDT eCW1 ([facility]) Sertraline 100 MG Oral Tablet 06/03/2020 12:00:00 AM EDT eCW1 ([facility]) Sertraline 100 MG Oral Tablet 06/03/2020 12:00:00 AM EDT eCW1 ([facility]) Sertraline 50 MG Oral Tablet 06/03/2020 12:00:00 AM EDT eCW1 ([facility]) Sertraline 50 MG Oral Tablet 06/03/2020 12:00:00 AM EDT eCW1 ([facility])
[2021-05-31 17:10] LABS: BASO # 0.1 10^3/uL (0.0-0.2); BASO % 0.5 % (0.0-1.0); EOS # 0.1 10^3/uL (0.0-0.5); EOS % 1.5 % (0.0-3.0); HEMATOCRIT 42.8 % (36.0-47.0); LYMPH # 2.7 10^3/uL (1.5-5.0); MEAN CORPUSCULAR HEMOGLOBIN 29.8 pg (27.0-33.0); MEAN CORPUSCULAR HGB CONC 32.7 g/dl (32.0-36.5); MEAN CORPUSCULAR VOLUME 91.1 fl (80.0-96.0); MONO # 0.7 10^3/uL (0.0-0.8); NEUTROPHILS % 62.7 % (36.0-66.0); WHITE BLOOD COUNT 9.5 10^3/uL (4.0-10.0)
[2021-05-31 17:30] LABS: ALBUMIN 3.9 GM/DL (3.2-5.2); ALT/SGPT 41 U/L (12-78); BILIRUBIN,TOTAL 0.2 MG/DL (0.2-1.0); BLOOD UREA NITROGEN 7 MG/DL (7-18); CALCIUM LEVEL 9.3 MG/DL (8.5-10.1); CARBON DIOXIDE LEVEL 27 MEQ/L (21-32); CHLORIDE LEVEL 108 MEQ/L (98-107); CREATININE FOR GFR 0.78 MG/DL (0.55-1.30); GLOMERULAR FILTRATION RATE > 60.0 (>60); GLUCOSE, FASTING 93 MG/DL (70-100); SODIUM LEVEL 138 MEQ/L (136-145); TOTAL PROTEIN 8.6 GM/DL (6.4-8.2)
[2021-05-31 17:35] LABS: PLATELET COUNT, AUTOMATED 286 10^3/uL (150-450)
[2021-05-31] MEDS ORDERED: ISOVUE-370 76% 100ML VIAL As Ordered ONE (17:57)
--- NOTE | 2021-05-31 18:45 | REPVR ---
PROCEDURE INFORMATION: Exam: CTA Chest With Contrast Exam date and time: 05/31/2021 6:06 PM Age: 20 years old Clinical indication: Other: Coughing up blood/ recent covid TECHNIQUE: Imaging protocol: Computed tomographic angiography of the chest with contrast. 3D rendering (Not supervised by radiologist): MIP and/or 3D reconstructed images were created by the technologist. Radiation optimization: All CT scans at this facility use at least one of these dose optimization techniques: automated exposure control; mA and/or kV adjustment per patient size (includes targeted exams where dose is matched to clinical indication); or iterative reconstruction. Contrast material: ISOVUE 370; Contrast volume: 75 ml; Contrast route: INTRAVENOUS (IV); COMPARISON: CR Chest, 2 view PA, Lat 05/31/2021 3:09 PM FINDINGS: Pulmonary arteries: There are no pulmonary emboli. Aorta: There is no aortic dissection or aneurysm. 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 Lungs: Bilateral patchy airspace infiltrates in the posterior segment of the right upper lobe, superior and posterior basal segments of the left lower lobe consistent with known Covid diagnosis. Pleural spaces: Unremarkable. No pneumothorax. No pleural effusion. Heart: Unremarkable. No cardiomegaly. No pericardial effusion. Lymph nodes: Unremarkable. No enlarged lymph nodes. Liver: 6 mm enhancing nodule anterior hepatic dome may represent flash filling of a hemangioma. Correlation with nonemergent ultrasound could be obtained if clinically desired. Bones/joints: Unremarkable. No acute fracture. Soft tissues: Unremarkable. IMPRESSION: 1. Bilateral patchy airspace infiltrates in the posterior segment of the right upper lobe, superior and posterior basal segments of the left lower lobe consistent with known Covid diagnosis. 2. There is no aortic dissection or aneurysm. 3. There are no pulmonary emboli. Electronically signed by: Stu Mullins On 05/31/2021 18:44:38 PM
[2021-05-31] MEDS ORDERED: VENTAER INH (19:04)
[2021-05-31] MEDS ORDERED: AMOX500T PO (19:04)
[2021-05-31] MEDS ORDERED: AMOXICILLIN 500 MG CAP PO ONE (19:05)
[2021-05-31 19:19] VITALS: BP 128/70
== END 2021-05-31 19:20 | disposition home or self-care (01) ==
LOC: M ED 14:32
DX: J18.9 Pneumonia, unspecified organism (principal); Z77.098 Contact with and (suspected) exposure to other hazardous, chiefly nonmedicinal, chemicals
CPT/HCPCS: 36415; 71046; 71275; 80053; 85025; 85379; 94640; 99284; Q9967

== ENCOUNTER → 2021-06-14 | Outpatient (CLI) | payer OTHER ==
[~2021-06-14] MED LIST changes: +AMOX500T PO; +ARIP1TAB4; +TRAZ-252; +VENTAER INH
--- NOTE | 2021-06-14 14:18 | REP ---
INDICATION: LIVER LESION PTS NAME WAS WRONG ON TRACKER. COMPARISON: No prior ultrasounds for comparison TECHNIQUE: Real-time sonographic evaluation of the right upper quadrant with Doppler FINDINGS: Multiple ultrasonographic images of the liver show the hepatic parenchymal echo texture to appear slightly hyperechoic. There are no focal masses. There is no intrahepatic ductal dilatation. The common bile duct measures approximately 3 mm in its greatest transverse dimension. Multiple ultrasonographic images of the gallbladder show no focal or diffuse gallbladder wall thickening. There are no echogenic foci within the gallbladder lumen, which casts acoustic shadows. There is no pericholecystic edema. Images of the pancreatic region show no gross abnormality. The imaged portion of the right kidney is unremarkable. IMPRESSION: 1. Possible mild diffuse fatty infiltration of the liver. 2. The 6 mm sized focal area of enhancement seen at the hepatic dome on the prior chest CT is not sonographically visible. Accredited by the [employer] in General Ultrasound. <Electronically signed by Arnold Gonzalez > 06/14/21 [id number]
== END ==
LOC: M RAD 10:46
PROVIDERS: ATTEND Physician Assistant Medical
DX: K76.89 Other specified diseases of liver (principal); K76.0 Fatty (change of) liver, not elsewhere classified

== ENCOUNTER → 2023-03-06 | Outpatient (REF) | payer OTHER ==
[2023-03-06 21:52] LABS: APPEARANCE, URINE CLEAR (CLEAR); BACTERIA, URINE AUTO 1+ (NEGATIVE); BILIRUBIN, URINE AUTO NEGATIVE (NEGATIVE); BLOOD, URINE BLOOD 1+ (NEGATIVE); COLOR, URINE STRAW (YELLOW); GLUCOSE, URINE (UA) AUTO NEGATIVE (NEGATIVE); KETONE, URINE AUTO NEGATIVE (NEGATIVE); LEUKOCYTE ESTERASE, URINE AUTO NEGATIVE (NEGATIVE); NITRITE, URINE AUTO NEGATIVE (NEGATIVE); PROTEIN, URINE AUTO NEGATIVE (NEGATIVE); RBC, URINE AUTO 0 /HPF (0-3); SPECIFIC GRAVITY URINE AUTO 1.003 (1.002-1.035); SQUAMOUS EPITHELIAL CELL UR AU 1 /HPF (0-6); UROBILINOGEN, URINE AUTO 0.2 mg/dL (0.0-2.0); WBC, URINE AUTO 1 /HPF (0-3)
== END ==
LOC: M LAB REF 21:21
PROVIDERS: ATTEND Physician Assistant Medical
DX: N39.0 Urinary tract infection, site not specified (principal)

== ENCOUNTER → 2024-04-15 | Outpatient (REF) | payer OTHER ==
[2024-04-15 21:13] LABS: APPEARANCE, URINE CLOUDY (CLEAR); BACTERIA, URINE AUTO 1+ (NEGATIVE); BILIRUBIN, URINE AUTO NEGATIVE (NEGATIVE); BLOOD, URINE BLOOD 2+ (NEGATIVE); COLOR, URINE AMBER (YELLOW); GLUCOSE, URINE (UA) AUTO NEGATIVE (NEGATIVE); KETONE, URINE AUTO TRACE mg/dL (NEGATIVE); LEUKOCYTE ESTERASE, URINE AUTO NEGATIVE (NEGATIVE); MUCUS, URINE SMALL (NEGATIVE); NITRITE, URINE AUTO NEGATIVE (NEGATIVE); PROTEIN, URINE AUTO 1+ mg/dL (NEGATIVE); RBC, URINE AUTO 36 /HPF (0-3); SPECIFIC GRAVITY URINE AUTO 1.034 (1.002-1.035); SQUAMOUS EPITHELIAL CELL UR AU 4 /HPF (0-6); TRANSITIONAL EPITHELIAL AUTO 1 /HPF; UROBILINOGEN, URINE AUTO 0.2 mg/dL (0.0-2.0); WBC, URINE AUTO 6 /HPF (0-3)
== END ==
LOC: M LAB REF 20:37
PROVIDERS: ATTEND Physician Assistant Medical
DX: N39.0 Urinary tract infection, site not specified (principal)

== ENCOUNTER 2024-04-28 15:01 | Emergency (ER) | payer OTHER ==
[~2024-04-28] VITALS: Ht 160 cm; Wt 117.9 kg
[2024-04-29] MEDS ORDERED: FLOM0.4C39 PO (02:30)
[2024-04-29] MEDS ORDERED: KETO10TAB PO (02:30)
[2024-04-29 02:34] VITALS: BP 128/72; TEMP 96.8; O2SAT 98
[2024-04-29] MEDS: KETOROLAC TROMETHAMINE 10 MG TAB PO ONE (02:41)
[2024-04-29] MEDS: TAMSULOSIN 0.4 MG CAP PO ONE (02:41)
== END 2024-04-29 02:44 | disposition home or self-care (01) ==
LOC: M ED 15:01
DX: N20.1 Calculus of ureter (principal); F41.9 Anxiety disorder, unspecified; F31.9 Bipolar disorder, unspecified; Z79.52 Long term (current) use of systemic steroids; Z79.2 Long term (current) use of antibiotics; Z79.899 Other long term (current) drug therapy